=== PATIENT | male | born 1935 | race Caucasian/White ===

== ENCOUNTER 2019-11-13 16:24 | Inpatient (IN) | payer OTHER ==
[~2019-11-13] VITALS: Ht 167.6 cm; Wt 81.4 kg
[2019-11-13 17:54] LABS: Basophils # (auto) 0 10 ^3/uL (0-0.2); Basophils % (auto) 0.4 % (0.0-2.0); Eosinophils # (auto) 0.1 10 ^3/uL (0-0.8); Hemoglobin 14.2 g/dL (13.5-17.5); Lymphocytes # (auto) 0.5 10 ^3/uL (0.4-5.4); Monocytes # (auto) 0.8 10 ^3/uL (0-1.3)
[2019-11-13 17:55] LABS: Eosinophils % (auto) 1.1 % (0.0-7.0); Hematocrit 41.7 % (41.0-53.0); Lymphocytes % (auto) 5.9 % (10.0-50.0); Mean Corpuscular Hemoglobin 34.7 pg (28.0-32.0); Mean Corpuscular Hgb Conc. 34.1 g/dL (32.0-36.0); Mean Corpuscular Volume 101.7 fL (80.0-100.0); Monocytes % (auto) 8.5 % (0.0-12.0); Neutrophils # (auto) 7.4 10 ^3/uL (1.6-8.6); Neutrophils % (auto) 84.1 % (37.0-80.0); Platelet Count (auto) 256 10^3/uL (140-450); Red Blood Cells 4.09 10^6/uL (4.5-5.90); Red Cell Distribution Width 14.4 % (11.8-14.3); White Blood Cell 8.8 10^3/uL (4.4-10.8)
[2019-11-13 18:10] LABS: Albumin 2.6 g/dL (3.4-5.0); Calcium 9.3 mg/dL (8.5-10.1); Potassium 3.9 mmol/L (3.5-5.1)
[2019-11-13 18:14] LABS: BUN/Creatinine Ratio 28.7; Bilirubin, Total 1.8 mg/dL (0.2-1.0); Total Protein 6.6 g/dL (6.4-8.2)
[2019-11-13] MEDS ORDERED: SODIUM CHLORIDE 0.9% 1,000 ML IVB ONE (19:43)
[2019-11-13] MEDS ORDERED: MORPHINE SULF INJ 2 MG/ML SYRINGE 1ML IV ONE (19:45)
[2019-11-13] MEDS ORDERED: ONDANSETRON HCL 4 MG/2 ML VIAL IV ONE (19:45)
[2019-11-13] MEDS ORDERED: SODIUM CHLORIDE 0.9% 1,000 ML IV SCH (21:41)
[2019-11-13] MEDS ORDERED: ONDANSETRON HCL 4 MG/2 ML VIAL IV PRN (21:45)
[2019-11-13] MEDS ORDERED: DEXTROSE (50%) 50ML SYRG IV PRN (21:45)
[2019-11-13] MEDS ORDERED: ACETAMINOPHEN 325 MG TAB PO PRN (21:45)
[2019-11-13] MEDS ORDERED: DOCUSATE SOD 100 MG CAP PO PRN (21:45)
[2019-11-13] MEDS ORDERED: ACETAMINOPHEN 500 MG TAB PO PRN (21:45)
[2019-11-13] MEDS ORDERED: ALBUTEROL SULF HFA 90MCG INH 200DOSE IN SCH (22:00)
[2019-11-13] MEDS ORDERED: cefTRIAXone 1GM/50ML D5W 50 ML IV ONE (22:00)
[2019-11-13] MEDS: DOXYCYCLINE 100 MG TAB/CAP PO SCH (22:11)
[2019-11-13] MEDS: MORPHINE SULF INJ 2 MG/ML SYRINGE 1ML IV PRN (22:58)
[2019-11-13] MEDS: InsuLIN REG 1unit/0.01ml Soln (100units/ml) SC SCH (23:58)
[2019-11-13] MEDS: ACCU-CHEK COMFORT CURVE STRIP VI SCH (23:58)
[2019-11-14 03:16] VITALS: BP 141/91
[2019-11-14] MEDS: ACCU-CHEK COMFORT CURVE STRIP VI SCH ×4 (05:58→23:47)
[2019-11-14] MEDS: InsuLIN REG 1unit/0.01ml Soln (100units/ml) SC SCH ×4 (05:59→23:47)
[2019-11-14] MEDS: MORPHINE SULF INJ 2 MG/ML SYRINGE 1ML IV PRN ×2 (06:08→10:05)
[2019-11-14 07:29] LABS: Basophils # (auto) 0.1 10 ^3/uL (0-0.2); Eosinophils # (auto) 0.1 10 ^3/uL (0-0.8); Neutrophils # (auto) 8.8 10 ^3/uL (1.6-8.6)
[2019-11-14 07:30] LABS: Basophils % (auto) 0.5 % (0.0-2.0); Eosinophils % (auto) 0.9 % (0.0-7.0); Hematocrit 39.9 % (41.0-53.0); Hemoglobin 13.5 g/dL (13.5-17.5); Lymphocytes # (auto) 0.7 10 ^3/uL (0.4-5.4); Lymphocytes % (auto) 6.3 % (10.0-50.0); Mean Corpuscular Hemoglobin 34.4 pg (28.0-32.0); Mean Corpuscular Hgb Conc. 33.7 g/dL (32.0-36.0); Monocytes % (auto) 9.6 % (0.0-12.0); Neutrophils % (auto) 82.7 % (37.0-80.0); Platelet Count (auto) 250 10^3/uL (140-450); Red Blood Cells 3.91 10^6/uL (4.5-5.90); Red Cell Distribution Width 14.8 % (11.8-14.3); White Blood Cell 10.6 10^3/uL (4.4-10.8)
[2019-11-14 07:53] LABS: Albumin 2.5 g/dL (3.4-5.0); BUN/Creatinine Ratio 31.6; Calcium 9.2 mg/dL (8.5-10.1); Magnesium 2.6 mg/dL (1.6-2.6); Potassium 4.1 mmol/L (3.5-5.1)
[2019-11-14 07:56] LABS: Bilirubin, Total 1.7 mg/dL (0.2-1.0); Total Protein 6.3 g/dL (6.4-8.2)
[2019-11-14 09:00] VITALS: BP 122/76
[2019-11-14] MEDS: CHOLECALCIFEROL (VITD3) 1,000UNIT=25mCg TAB PO SCH (09:28)
[2019-11-14] MEDS: ENOXAPARIN SOD 40 MG/0.4 ML SYRINGE SC SCH (09:28)
[2019-11-14] MEDS: ASCORBIC ACID 1,000 MG TAB PO SCH (09:28)
[2019-11-14] MEDS: DOXYCYCLINE 100 MG TAB/CAP PO SCH (09:29)
[2019-11-14] MEDS ORDERED: ZINC SULFATE 220mg CAP or TAB PO SCH (10:00)
[2019-11-14 12:40] VITALS: BP 125/69
[2019-11-14] MEDS ORDERED: ACETAMINOPHEN 325 MG TAB PO PRN (15:00)
[2019-11-14] MEDS: HYDROcodone-ACET 5/325MG TAB PO PRN (15:55)
[2019-11-14] MEDS ORDERED: FLEET MINERAL OIL ENEMA 133 ML PR ONE (16:00)
[2019-11-14] MEDS ORDERED: MAGNESIUM CITRATE SOLUTION 300 ML BTL PO ONE (16:00)
[2019-11-14 16:52] VITALS: BP 130/77
[2019-11-14] MEDS: SOD CHL 0.9%/ KCL 20MEQ 1,000 ML IV SCH (17:41)
[2019-11-14 22:00] VITALS: BP 142/91
[2019-11-15 05:00] VITALS: BP 130/82
[2019-11-15] MEDS: InsuLIN REG 1unit/0.01ml Soln (100units/ml) SC SCH ×3 (06:00→18:15)
[2019-11-15] MEDS: SOD CHL 0.9%/ KCL 20MEQ 1,000 ML IV SCH ×2 (06:13→12:00)
[2019-11-15] MEDS: MORPHINE SULF INJ 2 MG/ML SYRINGE 1ML IV PRN (06:14)
[2019-11-15] MEDS: ACCU-CHEK COMFORT CURVE STRIP VI SCH ×3 (06:14→18:12)
[2019-11-15 06:55] LABS: Basophils # (auto) 0 10 ^3/uL (0-0.2); Eosinophils # (auto) 0.1 10 ^3/uL (0-0.8); Hematocrit 40.5 % (41.0-53.0); Hemoglobin 13.9 g/dL (13.5-17.5); Lymphocytes # (auto) 0.5 10 ^3/uL (0.4-5.4); Lymphocytes % (auto) 6.1 % (10.0-50.0); Mean Corpuscular Hgb Conc. 34.3 g/dL (32.0-36.0); Monocytes # (auto) 0.6 10 ^3/uL (0-1.3); Neutrophils # (auto) 6.3 10 ^3/uL (1.6-8.6); White Blood Cell 7.5 10^3/uL (4.4-10.8)
[2019-11-15 07:00] LABS: Basophils % (auto) 0.3 % (0.0-2.0); Mean Corpuscular Volume 102.1 fL (80.0-100.0); Monocytes % (auto) 8.2 % (0.0-12.0); Neutrophils % (auto) 84.4 % (37.0-80.0); Platelet Count (auto) 232 10^3/uL (140-450); Red Blood Cells 3.97 10^6/uL (4.5-5.90); Red Cell Distribution Width 14.7 % (11.8-14.3)
[2019-11-15 07:03] LABS: INR 1.07 (0.9-1.15)
[2019-11-15 07:13] LABS: Calcium 9.3 mg/dL (8.5-10.1); Potassium 4.1 mmol/L (3.5-5.1)
[2019-11-15 07:16] LABS: BUN/Creatinine Ratio 36.4
[2019-11-15 08:00] VITALS: BP 143/81
[2019-11-15] MEDS: HYDROcodone-ACET 5/325MG TAB PO PRN ×2 (08:22→17:40)
[2019-11-15] MEDS: ENOXAPARIN SOD 40 MG/0.4 ML SYRINGE SC SCH (08:23)
[2019-11-15 09:00] VITALS: BP 137/84
[2019-11-15] MEDS ORDERED: HYDROmorphone HCL 2 MG/ML VL IV ONE (09:00)
[2019-11-15] MEDS: ASCORBIC ACID 1,000 MG TAB PO SCH (10:00)
[2019-11-15] MEDS: CHOLECALCIFEROL (VITD3) 1,000UNIT=25mCg TAB PO SCH (10:00)
[2019-11-15 13:00] VITALS: BP 130/78
[2019-11-15] MEDS: HYDROmorphone HCL 2 MG/ML VL IV PRN ×3 (16:08→21:50)
[2019-11-15 17:00] VITALS: BP 126/81
[2019-11-15] MEDS: D5W/SOD CHL 0.45%/KCL 20MEQ 1,000 ML IV SCH (17:46)
[2019-11-15] MEDS: ALBUTEROL SULF 2.5 MG/0.5ML(0.5%) NEB SOLN NEB SCH (18:18)
[2019-11-15] MEDS ORDERED: NALOXONE HCL 0.4 MG/ML VIAL IV ONE (20:15)
[2019-11-15] MEDS ORDERED: HYDROmorphone HCL 2 MG/ML VL IV PRN (20:45)
[2019-11-15] MEDS ORDERED: LORazepam 2MG/ML-1ML VIAL IV PRN (21:30)
[2019-11-15] MEDS ORDERED: HYDROmorphone HCL 2 MG/ML VL ONE (21:44)
[2019-11-15 22:00] VITALS: BP 110/73
[2019-11-16] MEDS: ACCU-CHEK COMFORT CURVE STRIP VI SCH
[2019-11-16] MEDS: InsuLIN REG 1unit/0.01ml Soln (100units/ml) SC SCH
[2019-11-16] MEDS ORDERED: metroNIDAZOLE 500MG/100ML 100 ML IV SCH
[2019-11-16 05:00] VITALS: BP 99/63
[2019-11-16] MEDS: D5W/SOD CHL 0.45%/KCL 20MEQ 1,000 ML IV SCH (06:43)
[2019-11-16] MEDS: HYDROmorphone HCL 2 MG/ML VL IV PRN ×3 (06:44→15:39)
[2019-11-16] MEDS: ALBUTEROL SULF 2.5 MG/0.5ML(0.5%) NEB SOLN NEB SCH ×2 (07:31→12:00)
[2019-11-16 09:00] VITALS: BP 111/66
[2019-11-16] MEDS ORDERED: cefTRIAXone 1GM/50ML D5W 50 ML IV SCH (09:00)
[2019-11-16 10:55] VITALS: BP 121/74
[2019-11-16 12:45] VITALS: BP 121/76
[2019-11-16 13:11] VITALS: BP 121/76
[2019-11-16 16:46] VITALS: BP 121/76
== END 2019-11-16 17:02 | disposition hospice, home (50) | DRG 917 ==
LOC: ER 16:24 → EDUNIT# 16:24 → EDBD 16:24 → OVERFLOW 16:25 → EAST 11-14 03:40 → WEST WING 11-14 14:34
PROVIDERS: ADMIT Hospitalist; ATTEND Hospitalist
DX: T40.601A Poisoning by unspecified narcotics, accidental (unintentional), initial encounter (principal); J96.01 Acute respiratory failure with hypoxia; C78.7 Secondary malignant neoplasm of liver and intrahepatic bile duct; K56.600 Partial intestinal obstruction, unspecified as to cause; J98.11 Atelectasis; C79.51 Secondary malignant neoplasm of bone; R73.9 Hyperglycemia, unspecified; E03.9 Hypothyroidism, unspecified; E78.5 Hyperlipidemia, unspecified; C61 Malignant neoplasm of prostate; K59.00 Constipation, unspecified; E66.9 Obesity, unspecified; Z20.828 Contact with and (suspected) exposure to other viral communicable diseases; M19.90 Unspecified osteoarthritis, unspecified site; G89.4 Chronic pain syndrome; I10 Essential (primary) hypertension; K21.9 Gastro-esophageal reflux disease without esophagitis; Z51.5 Encounter for palliative care; Z90.81 Acquired absence of spleen; Z92.21 Personal history of antineoplastic chemotherapy; Z92.3 Personal history of irradiation; Z90.79 Acquired absence of other genital organ(s); Z66 Do not resuscitate; Y92.89 Other specified places as the place of occurrence of the external cause
CPT/HCPCS: 36415; 36600; 71045; 74021; 74176; 80048; 80053; 82378; 82728; 82805; 82962; 83036; 83735; 84154; 84484; 85025; 85610; 85730; 87070; 87804; 87880; 93005; 94640; 96361; 96374; 96375; G0378; J0696; J1815; J2405